=== PATIENT | female | born 1995 | race Caucasian/White ===

== ENCOUNTER 2020-11-17 21:56 | Emergency (ER) | payer OTHER ==
[2020-11-18] MEDS ORDERED: ROBAXIN750 MG PO (00:25)
[2020-11-18] MEDS ORDERED: NORCO 5-325 TA1 EACH PO (00:25)
[2020-11-18] MEDS ORDERED: NAPROXEN500 MG PO (00:25)
== END 2020-11-18 00:42 | disposition home or self-care (01) ==
LOC: FER 21:56
DX: R07.89 Other chest pain (principal); R06.02 Shortness of breath; R00.0 Tachycardia, unspecified; F17.210 Nicotine dependence, cigarettes, uncomplicated
CPT/HCPCS: 36415; 71046; 84484; 85379; 93005